=== PATIENT | male | born 1945 | race Caucasian/White ===

== ENCOUNTER → 2024-07-02 07:07 | Outpatient (REF) | payer OTHER, SELFPAY | LOC: HWRCS 07:07 | PROVIDERS: ATTENDING PHYSICIAN Internal Medicine Cardiovascular Disease; FAMILY PHYSICIAN Internal Medicine | DX: I42.8 Other cardiomyopathies (principal) | CPT/HCPCS: 93306 ==

== ENCOUNTER → 2025-06-04 07:03 | Outpatient (REF) | payer OTHER, SELFPAY | LOC: HWRCS 07:03 | PROVIDERS: ATTENDING PHYSICIAN Nurse Practitioner Gerontology; FAMILY PHYSICIAN Internal Medicine Geriatric Medicine | DX: I42.8 Other cardiomyopathies (principal) | CPT/HCPCS: 93306 ==